=== PATIENT | male | born 1955 | race Caucasian/White ===

== ENCOUNTER 2019-04-18 13:31 | Emergency (ER) | payer OTHER ==
[~2019-04-18] VITALS: Ht 180.3 cm; Wt 81.7 kg
[~2019-04-18 13:31] MED LIST: ALBUTEROL2.5 MG/0.1 IH; AMITRIPTYLINE H25 M2 PO; DILTIAZEM 24HR240 MG PO; LEVAQUIN 500 M500 M2 PO; NEURONTIN 300300 M1 PO; OXYGEN; PREDNISONE 10 M10 M1 PO; SPIRIVA INH
[2019-04-18] MEDS ORDERED: [UNRECOGNIZED DRUG - OTHER] (14:41)
[2019-04-18] MEDS ORDERED: FLOMAX0.4 MG PO (14:42)
[2019-04-18 17:25] LABS: CALCIUM 9.1 mg/dL (8.5-10.1); CREATININE 1.1 mg/dL (0.7-1.3); POTASSIUM 4.4 mmol/L (3.5-5.1)
[2019-04-18] MEDS ORDERED: NORFLEX100 MG PO (18:14)
[2019-04-18] MEDS ORDERED: NAPROSYN500 MG PO (18:14)
[2019-04-18 18:25] VITALS: BP 140/73
== END 2019-04-18 18:26 | disposition home or self-care (01) ==
LOC: ER 13:31
PROVIDERS: Emergency Medicine
DX: M43.6 Torticollis (principal); J44.9 Chronic obstructive pulmonary disease, unspecified; F17.210 Nicotine dependence, cigarettes, uncomplicated; Z88.6 Allergy status to analgesic agent